=== PATIENT | female | born 1960 | race Caucasian/White ===

== ENCOUNTER 2024-01-11 10:06 | Outpatient (AMB) | payer OTHER, SELFPAY ==
--- NOTE | 2024-01-11 12:08 | MHC.OFFWIV ---
Intake Vital Signs 01/11/24 12:10 Height 5 ft 4 in Weight 185 lb BMI 31.8 BP 140/70 H Blood Pressure Location Lt brachial Position Sitting Pulse 93 Pulse Source Pulse Oximeter Temp 97.7 F Temp Source Temporal Artery Scan Pulse Oximetry (%) 96 Oxygen Delivery Method Room Air Intake Visit Reasons: [employer] Cough [phone] Intake Note: pt is here today for cough started 3 weeks ago Patient Tobacco Use Status: Never used Tobacco Allergies No Known Allergies Allergy (Verified 01/11/24 12:10) Do you need a note to return to daycare/school/sports/work: No HPI HPI Comments History of Present Illness Details The patient presents to urgent care for evaluation of cough. She states that she had an episode of pneumonia about 1-2 months ago that cleared up with a course of antibiotics. She has been previously living in [place] and recently came up to the area 3 weeks ago to live with her sister and relocated to the area. Since residing with her sister she developed a cough which seems to be worse at night. There is no fever chills nausea vomiting. The patient's sister smokes at in the home. Patient is an ex smoker quit many years ago [facility] Social History Patient Tobacco Use Status: Never used Tobacco Review of Systems Const Reports body aches, Reports chills, Reports fatigue, Reports fever(s), Reports headache(s) and Reports malaise ENT Denies dizziness, Reports headache(s), Reports nasal congestion and Reports sore throat Card Denies rapid heart rate Musc Denies arthralgias and Denies muscle cramps Neuro Denies dizziness, Reports headache(s), Denies focal weakness and Denies Other visual disturbances Endo Reports fatigue Physical Exam Vital Signs: Last Vital Signs Temp 97.7 F 01/11/24 12:10 Pulse 93 01/11/24 12:10 BP 140/70 H 01/11/24 12:10 Pulse Ox 96 01/11/24 12:10 Oxygen Delivery Method Room Air 01/11/24 12:10 BMI result Body Mass Index 31.8 Const General: healthy appearing and no acute distress HEENT Mouth: Normal oral and palatal mucosa present Resp Effort & Inspection: normal respiratory effort and able to speak in complete sentences Auscultation: clear to auscultation bilaterally Cardio Rate: regular rate Rhythm: regular rhythm Assessment & Plan Assessment & Plan (1) Cough: Code(s): R05.9 - Cough, unspecified Plan: The patient has a distant remote history of cigarette smoking. She just recently relocated to this area and is residing with her sister for the past 3 weeks. The patient's sister smokes, and smokes in the home. The treatment room was very thick with odor of cigarette smoke. I suspect that this is triggering the patient's Since this essentially began since coming to stay with her sister. No sign of active infection. Patient likely benefit from a course of albuterol and prednisone. The Patient is comfortable with this plan. Well appearing and stable. Coding Level of Care Code Est Pt Level 3 (97511) Diagnoses Cough R05.9
[2024-01-11 12:10] VITALS: BP 140/70; PULSE 93; TEMP 36.5; O2SAT 96; BMI 31.8
== END 2024-01-11 12:49 | disposition home or self-care (01) ==
PROVIDERS: Visit Provider Emergency Medicine
DX: R05.9 Cough, unspecified (principal)
CPT/HCPCS: 99213